=== PATIENT | male | born 2005 | race Caucasian/White ===

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

== ENCOUNTER → 2025-01-17 14:14 | Outpatient (REF) | payer OTHER, SELFPAY | LOC: RAD 14:14 | PROVIDERS: ATTENDING PHYSICIAN Nurse Practitioner Family | DX: R10.812 Left upper quadrant abdominal tenderness (principal); R50.9 Fever, unspecified | CPT/HCPCS: 76700 ==

== ENCOUNTER → 2025-05-24 08:56 | Outpatient (REF) | payer OTHER, SELFPAY | LOC: PAVMRI 08:56 | PROVIDERS: ATTENDING PHYSICIAN Internal Medicine; FAMILY PHYSICIAN Family Medicine | DX: R19.5 Other fecal abnormalities (principal); R10.84 Generalized abdominal pain | CPT/HCPCS: 72197; 74183; A9575 ==